=== PATIENT | male | born 1960 | race Caucasian/White ===

== ENCOUNTER → 2017-10-25 | Outpatient (CLI) | payer OTHER ==
[~2017-10-25] MED LIST: CONRAY-43 43% 50ML VIAL (Q9960) As Ordered; LIDOCAINE 1% MDV 20ML VIAL As Ordered; TRIAMCINOLONE ACETONIDE SUSP 40 MG/ML VIAL (J3301) As Ordered
== END ==
LOC: M RADPRO 11:13
DX: M75.21 Bicipital tendinitis, right shoulder (principal)
CPT/HCPCS: 20610

== ENCOUNTER 2017-10-28 11:39 | Emergency (ER) | payer OTHER ==
[2017-10-28 12:11] LABS: BASO % 0.4 % (0.0-1.0); EOS % 0.1 % (0.0-3.0); HEMATOCRIT 50.9 % (42.0-52.0); IMMATURE GRANULOCYTE % 1.5 % (0-3.0); LYMPH # 2.2 10^3/uL (1.5-4.5); LYMPH % 19.5 % (24.0-44.0); MEAN CORPUSCULAR HGB CONC 33.4 g/dl (32.0-36.5); MEAN CORPUSCULAR VOLUME 86.7 fl (80.0-96.0); MONO # 0.9 10^3/uL (0.0-0.8); MONO % 7.8 % (0.0-5.0); NEUTROPHILS % 70.7 % (36.0-66.0); PLATELET COUNT, AUTOMATED 292 10^3/uL (150-450); RED BLOOD COUNT 5.87 10^6/uL (4.30-6.10); RED CELL DISTRIBUTION WIDTH 13.7 % (11.5-14.5); WHITE BLOOD COUNT 11.3 10^3/uL (4.0-10.0)
[2017-10-28 12:25] LABS: INR 0.98; PROTHROMBIN TIME 13.1 SECONDS (12.4-14.5)
[2017-10-28 12:26] LABS: PARTIAL THROMBOPLASTIN TIME 32.7 SECONDS (26.8-37.9)
[2017-10-28 12:39] LABS: ALBUMIN 3.1 GM/DL (3.2-5.2); ALBUMIN/GLOBULIN RATIO 0.82 (1.00-1.93); ALKALINE PHOSPHATASE 58 U/L (45-117); ALT/SGPT 54 U/L (12-78); ANION GAP 6 MEQ/L (8-16); AST/SGOT 18 U/L (7-37); BILIRUBIN,DIRECT < 0.1 MG/DL (0.0-0.2); BILIRUBIN,TOTAL 0.3 MG/DL (0.2-1.0); BLOOD UREA NITROGEN 20 MG/DL (7-18); CARBON DIOXIDE LEVEL 30 MEQ/L (21-32); CHLORIDE LEVEL 106 MEQ/L (98-107); CPK CREATINE PHOSPHOKINASE 98 U/L (39-308); CREATININE FOR GFR 1.25 MG/DL (0.70-1.30); FREE T4 0.92 NG/DL (0.76-1.46); GLOMERULAR FILTRATION RATE > 60.0 (>56); GLUCOSE, FASTING 132 MG/DL (70-100); LIPASE 401 U/L (73-393); POTASSIUM SERUM 4.3 MEQ/L (3.5-5.1); SODIUM LEVEL 142 MEQ/L (136-145); TOTAL PROTEIN 6.9 GM/DL (6.4-8.2); TROPONIN I < 0.02 NG/ML (< 0.10)
[2017-10-28 12:45] LABS: CK-MB VALUE MASS 1.2 NG/ML (<3.6); MB/CK RELATIVE INDEX 1.22 (< OR =4)
[2017-10-28] MEDS: dexameTHASONE 20 MG/5 ML VIAL (J1100) IV (14:05)
[2017-10-28] MEDS: FAMOTIDINE INJ 20MG/2ML VIAL (S0028) IVP (14:08)
== END 2017-10-28 15:51 | disposition home or self-care (01) ==
LOC: M ED 11:39
DX: R07.9 Chest pain, unspecified (principal); T50.8X5A Adverse effect of diagnostic agents, initial encounter; Z79.899 Other long term (current) drug therapy; Z87.891 Personal history of nicotine dependence
CPT/HCPCS: J1100

== ENCOUNTER → 2017-12-17 | Outpatient (CLI) | payer OTHER ==
[2017-12-17 18:06] LABS: ESTRADIOL 120.1 PG/ML (<39.8)
[2017-12-17 18:13] LABS: FREE T3 2.7 PG/ML (2.2-4.0); THYROXINE (T4) 10.4 UG/DL (4.5-12.0)
== END ==
LOC: M WUC 15:16
DX: R53.83 Other fatigue (principal); E29.1 Testicular hypofunction
CPT/HCPCS: 84146

== ENCOUNTER → 2018-04-25 | Outpatient (CLI) | payer OTHER ==
[2018-04-25 18:05] LABS: ESTRADIOL 24.5 PG/ML (<39.8)
[2018-04-29 00:07] LABS: TESTOSTERONE FREE (DIRECT) > 50.0 pg/mL (7.2-24.0); TESTOSTERONE TOTAL FOR T&D > 1500.0 ng/dL (264-916)
== END ==
LOC: M WUC 11:21
DX: E29.1 Testicular hypofunction (principal)
CPT/HCPCS: 84403

== ENCOUNTER → 2018-06-04 | Outpatient (CLI) | payer OTHER ==
[~2018-06-04] MED LIST changes: +BENA25TA10 PO; +CIAL5TAB; +CLARITIN; -CONRAY-43 43% 50ML VIAL (Q9960) As Ordered; +HYDR-3719; -LIDOCAINE 1% MDV 20ML VIAL As Ordered; +PRED20TA PO; -TRIAMCINOLONE ACETONIDE SUSP 40 MG/ML VIAL (J3301) As Ordered
--- NOTE | 2018-06-10 11:31 | SLEEPHOME ---
DATE OF STUDY: 06/04/2018 ORDERING PROVIDER: JD Adams Diagnostic home sleep testing was performed due to concern for the obstructive sleep apnea syndrome in this patient with a history of excessive somnolence, snoring, and nonrestorative sleep who has comorbidity of hypertension. For testing, a nocturnal T3 respiratory monitoring device was used. Continuous record was made of pulse, oxygen saturation, airflow, chest and abdominal strain, and body position. 10 hours and 59 minutes of data were reviewed. There were 7 hours and 47 minutes identified as time in bed. During the interval marked time in bed, there were 41 respiratory events identified of 10 seconds in duration or greater. The events were primarily obstructive and not exclusive to body posture. The patient's baseline pulse rate was 66 beats per minute. Pulse rate ranged 56-83. Baseline saturation was 94%. Saturations fell to 88%. Testing was performed primarily in a supine position. IMPRESSION: Abnormal home sleep testing with repetitive respiratory events and oxygen desaturations to 88% with a respiratory event index of 5.3 is consistent with the obstructive sleep apnea syndrome. RECOMMENDATION: The patient should be encouraged to undergo formal sleep evaluation and in-laboratory titration.
== END ==
LOC: M SLEEP HO 10:41
PROVIDERS: ATTEND Nurse Practitioner Family
DX: R40.0 Somnolence (principal)

== ENCOUNTER → 2018-07-15 | Outpatient (CLI) | payer OTHER ==
[2018-07-15 13:16] LABS: ALBUMIN 3.9 GM/DL (3.2-5.2); ALT/SGPT 54 U/L (12-78); BILIRUBIN,TOTAL 0.6 MG/DL (0.2-1.0); BLOOD UREA NITROGEN 20 MG/DL (7-18); CALCIUM LEVEL 8.7 MG/DL (8.5-10.1); CARBON DIOXIDE LEVEL 30 MEQ/L (21-32); CHLORIDE LEVEL 102 MEQ/L (98-107); CHOLESTEROL LEVEL 251 MG/DL (<200); CHOLESTEROL RISK RATIO 6.435 (<5); CREATININE FOR GFR 1.19 MG/DL (0.70-1.30); GLOMERULAR FILTRATION RATE > 60.0 (>56); GLUCOSE, FASTING 82 MG/DL (70-100); HDL CHOLESTEROL 39 MG/DL (>40); LDL CHOLESTEROL 180 MG/DL (<100); NON-HDL-C 212 MG/DL; POTASSIUM SERUM 4.7 MEQ/L (3.5-5.1); SODIUM LEVEL 139 MEQ/L (136-145); TOTAL PROTEIN 6.9 GM/DL (6.4-8.2); TRIGLYCERIDES LEVEL 158 MG/DL (<150)
== END ==
LOC: M WUC 08:55
PROVIDERS: ATTEND Internal Medicine
DX: Z00.00 Encounter for general adult medical examination without abnormal findings (principal); I10 Essential (primary) hypertension

== ENCOUNTER → 2020-11-04 | Outpatient (REF) | payer OTHER ==
[2020-11-07 13:08] LABS: TESTOSTERONE FREE (DIRECT) > 50.0 pg/mL (7.2-24.0); TESTOSTERONE TOTAL FOR T&D > 1500.0 ng/dL (264-916)
== END ==
LOC: M LAB REF 19:44
PROVIDERS: ATTEND Anesthesiology Pain Medicine
DX: E23.0 Hypopituitarism (principal)

== ENCOUNTER → 2021-04-17 | Outpatient (CLI) | payer OTHER ==
[2021-04-17 17:26] LABS: PROSTATIC SPECIFIC AG MONITOR 3.07 NG/ML (< 4.00)
[2021-04-17 17:34] LABS: TOTAL 25(OH) VITAMIN D 25.8 NG/ML (30.0-100.0)
== END ==
LOC: M WUC 12:09
PROVIDERS: ATTEND Anesthesiology Pain Medicine
DX: E29.1 Testicular hypofunction (principal)

== ENCOUNTER → 2021-09-04 | Outpatient (CLI) | payer OTHER ==
[2021-09-04 10:35] LABS: HEMATOCRIT 57.4 % (42.0-52.0); HEMOGLOBIN 18.9 g/dl (13.5-17.5); MEAN CORPUSCULAR HGB CONC 32.9 g/dl (32.0-36.5); PLATELET COUNT, AUTOMATED 235 10^3/uL (150-450); RED BLOOD COUNT 6.31 10^6/uL (4.30-6.10); WHITE BLOOD COUNT 6.5 10^3/uL (4.0-10.0)
[2021-09-04 11:11] LABS: CALCIUM LEVEL 9.2 MG/DL (8.8-10.2); CREATININE FOR GFR 1.34 MG/DL (0.70-1.30); GLOMERULAR FILTRATION RATE 57.9 (>49); POTASSIUM SERUM 4.4 MEQ/L (3.5-5.1)
[2021-09-04 11:12] LABS: ALBUMIN 3.5 GM/DL (3.2-5.2); BILIRUBIN,TOTAL 0.6 MG/DL (0.2-1.0); CHOLESTEROL RISK RATIO 6.485 (<5); MAGNESIUM LEVEL 2.2 MG/DL (1.8-2.4); TOTAL PROTEIN 6.6 GM/DL (6.4-8.2)
== END ==
LOC: M PLALAB 08:55
PROVIDERS: ATTEND Internal Medicine
DX: I10 Essential (primary) hypertension (principal); R29.818 Other symptoms and signs involving the nervous system; E78.00 Pure hypercholesterolemia, unspecified

== ENCOUNTER → 2021-12-06 | Outpatient (CLI) | payer OTHER ==
[2021-12-06 17:20] LABS: BASO # 0.1 10^3/uL (0.0-0.2); BASO % 0.6 % (0.0-1.0); EOS # 0.1 10^3/uL (0.0-0.5); HEMATOCRIT 58.5 % (42.0-52.0); HEMOGLOBIN 18.9 g/dl (13.5-17.5); LYMPH # 1.4 10^3/uL (1.5-5.0); LYMPH % 15.4 % (24.0-44.0); MEAN CORPUSCULAR HEMOGLOBIN 28.9 pg (27.0-33.0); MEAN CORPUSCULAR HGB CONC 32.3 g/dl (32.0-36.5); MEAN CORPUSCULAR VOLUME 89.6 fl (80.0-96.0); MONO # 0.8 10^3/uL (0.0-0.8); NEUTROPHILS # 6.6 10^3/uL (1.5-8.5); NEUTROPHILS % 73.6 % (36.0-66.0); PLATELET COUNT, AUTOMATED 282 10^3/uL (150-450); RED BLOOD COUNT 6.53 10^6/uL (4.30-6.10); WHITE BLOOD COUNT 8.9 10^3/uL (4.0-10.0)
[2021-12-06 18:39] LABS: ALBUMIN 3.7 GM/DL (3.2-5.2); BILIRUBIN,TOTAL 0.4 MG/DL (0.2-1.0); CALCIUM LEVEL 9.2 MG/DL (8.8-10.2); CREATININE FOR GFR 1.34 MG/DL (0.70-1.30); GLOMERULAR FILTRATION RATE 57.9 (>49); POTASSIUM SERUM 4.8 MEQ/L (3.5-5.1); TOTAL PROTEIN 6.9 GM/DL (6.4-8.2)
== END ==
LOC: M PLALAB 15:08
PROVIDERS: ATTEND Internal Medicine Hematology
DX: R10.32 Left lower quadrant pain (principal)

== ENCOUNTER → 2021-12-14 | Outpatient (CLI) | payer OTHER | LOC: M RAD 16:13 | PROVIDERS: ATTEND Internal Medicine Hematology | DX: R10.32 Left lower quadrant pain (principal) ==

== ENCOUNTER → 2021-12-21 | Outpatient (CLI) | payer OTHER ==
[~2021-12-21] MED LIST changes: +ISOVUE-370 76% 100ML VIAL As Ordered ONE
== END ==
LOC: M RAD 08:36
PROVIDERS: ATTEND Internal Medicine Hematology
DX: N28.89 Other specified disorders of kidney and ureter (principal); K76.89 Other specified diseases of liver

== ENCOUNTER → 2021-12-22 | Outpatient (CLI) | payer OTHER ==
[~2021-12-22] MED LIST changes: -ISOVUE-370 76% 100ML VIAL As Ordered ONE
[2021-12-22 11:22] LABS: BASO # 0.1 10^3/uL (0.0-0.2); BASO % 0.8 % (0.0-1.0); EOS # 0.1 10^3/uL (0.0-0.5); EOS % 1.8 % (0.0-3.0); HEMATOCRIT 59.2 % (42.0-52.0); HEMOGLOBIN 19.3 g/dl (13.5-17.5); LYMPH # 1.7 10^3/uL (1.5-5.0); LYMPH % 27.1 % (24.0-44.0); MEAN CORPUSCULAR HEMOGLOBIN 29.3 pg (27.0-33.0); MEAN CORPUSCULAR HGB CONC 32.6 g/dl (32.0-36.5); MEAN CORPUSCULAR VOLUME 89.8 fl (80.0-96.0); MONO # 0.4 10^3/uL (0.0-0.8); MONO % 7.2 % (2.0-8.0); NEUTROPHILS # 3.8 10^3/uL (1.5-8.5); NEUTROPHILS % 62.8 % (36.0-66.0); PLATELET COUNT, AUTOMATED 251 10^3/uL (150-450); RED BLOOD COUNT 6.59 10^6/uL (4.30-6.10); WHITE BLOOD COUNT 6.1 10^3/uL (4.0-10.0)
[2021-12-22 12:05] LABS: ALBUMIN 3.6 GM/DL (3.2-5.2); BILIRUBIN,TOTAL 0.6 MG/DL (0.2-1.0); CALCIUM LEVEL 9.5 MG/DL (8.8-10.2); CREATININE FOR GFR 1.42 MG/DL (0.70-1.30); GLOMERULAR FILTRATION RATE 54.1 (>49); POTASSIUM SERUM 4.7 MEQ/L (3.5-5.1)
== END ==
LOC: M LAB 10:27
PROVIDERS: ATTEND Internal Medicine Hematology
DX: R10.32 Left lower quadrant pain (principal)

== ENCOUNTER → 2021-12-22 | Outpatient (CLI) | payer OTHER | LOC: M RAD 10:21 | PROVIDERS: ATTEND Physician Assistant | DX: N28.89 Other specified disorders of kidney and ureter (principal) ==

== ENCOUNTER → 2022-02-06 | Outpatient (CLI) | payer OTHER ==
[2022-02-06 20:55] LABS: ALBUMIN 3.6 GM/DL (3.2-5.2); CALCIUM LEVEL 9.5 MG/DL (8.8-10.2); CREATININE FOR GFR 1.48 MG/DL (0.70-1.30); GLOMERULAR FILTRATION RATE 51.6 (>49); PHOSPHORUS LEVEL 3.1 MG/DL (2.5-4.9); POTASSIUM SERUM 4.4 MEQ/L (3.5-5.1); THYROID STIMULATING HORMONE 2.65 uIU/ML (0.358-3.740); THYROXINE (T4) 11.2 UG/DL (4.5-12.0)
[2022-02-06 21:16] LABS: FREE T3 3.2 PG/ML (2.2-4.0)
[2022-02-08 21:07] LABS: TESTOSTERONE FREE (DIRECT) 37.1 pg/mL (6.6-18.1); TESTOSTERONE TOTAL FOR T&D > 1500.0 ng/dL (264-916)
== END ==
LOC: M WUC 14:59
PROVIDERS: ATTEND Anesthesiology Pain Medicine
DX: R53.83 Other fatigue (principal); N18.9 Chronic kidney disease, unspecified

== ENCOUNTER → 2022-06-21 | Outpatient (CLI) | payer OTHER | LOC: M WHC 10:34 | PROVIDERS: ATTEND Internal Medicine Cardiovascular Disease | DX: I65.21 Occlusion and stenosis of right carotid artery (principal) ==

== ENCOUNTER → 2022-10-04 | Outpatient (REF) | payer OTHER ==
[2022-10-04 17:45] LABS: BLOOD UREA NITROGEN 20 MG/DL (9-23); CREATININE FOR GFR 1.24 MG/DL (0.70-1.30); GLOMERULAR FILTRATION RATE > 60.0 (>49)
== END ==
LOC: M LAB REF 16:15
PROVIDERS: ATTEND Surgery Vascular Surgery
DX: Z01.812 Encounter for preprocedural laboratory examination (principal); I65.21 Occlusion and stenosis of right carotid artery

== ENCOUNTER → 2022-10-11 | Outpatient (CLI) | payer OTHER ==
[~2022-10-11] MED LIST changes: +ISOVUE-370 76% 100ML VIAL As Ordered ONE
== END ==
LOC: M RAD 07:36
PROVIDERS: ATTEND Surgery Vascular Surgery
DX: I65.21 Occlusion and stenosis of right carotid artery (principal)
CPT/HCPCS: 70498; Q9967

== ENCOUNTER → 2025-01-06 | Outpatient (REF) | payer OTHER ==
[~2025-01-06] MED LIST changes: -ISOVUE-370 76% 100ML VIAL As Ordered ONE
== END ==
LOC: M SFHCPLAZ 13:48
PROVIDERS: ATTEND Family Medicine
DX: Z00.00 Encounter for general adult medical examination without abnormal findings (principal); R79.89 Other specified abnormal findings of blood chemistry; E78.5 Hyperlipidemia, unspecified; I10 Essential (primary) hypertension; M54.16 Radiculopathy, lumbar region; G89.29 Other chronic pain; Z79.891 Long term (current) use of opiate analgesic

== ENCOUNTER → 2025-01-07 | Outpatient (CLI) | payer OTHER ==
[2025-01-07 17:41] LABS: PLATELET COUNT, AUTOMATED 257 10^3/uL (150-450)
[2025-01-07 18:25] LABS: PSA SCREENING 2.5 NG/ML (< 4.00)
[2025-01-07 18:29] LABS: ALT/SGPT 28.0 U/L (7.0-40); AST/SGOT 21.0 U/L (<34); CALCIUM LEVEL 10.1 MG/DL (8.3-10.6); CARBON DIOXIDE LEVEL 33.0 MMOL/L (20-31); CHLORIDE LEVEL 102.0 MMOL/L (98-107); CHOLESTEROL LEVEL 304.0 MG/DL (<200); CHOLESTEROL RISK RATIO 8.37 (<5); CREATININE FOR GFR 1.45 MG/DL (0.70-1.30); GLOMERULAR FILTRATION RATE 54.2 (>49); LDL CHOLESTEROL 243.1 MG/DL (<100); NON-HDL-C 267.7 MG/DL; POTASSIUM SERUM 4.4 MMOL/L (3.5-5.1); SODIUM LEVEL 142.0 MMOL/L (136-145); TRIGLYCERIDES LEVEL 123.0 MG/DL (<150)
== END ==
LOC: M WUC 13:37
PROVIDERS: ATTEND Family Medicine
DX: Z00.00 Encounter for general adult medical examination without abnormal findings (principal)

== ENCOUNTER → 2025-02-03 | Outpatient (REF) | payer OTHER | LOC: M SFHCPLAZ 16:36 | PROVIDERS: ATTEND Family Medicine | DX: Z53.9 Procedure and treatment not carried out, unspecified reason (principal); R79.89 Other specified abnormal findings of blood chemistry ==

== ENCOUNTER → 2025-03-19 | Outpatient (CLI) | payer OTHER | LOC: M PLAIMG 15:05 | PROVIDERS: ATTEND Nurse Practitioner Family | DX: M51.16 Intervertebral disc disorders with radiculopathy, lumbar region (principal) ==

== ENCOUNTER → 2025-03-22 | Outpatient (CLI) | payer OTHER | LOC: M WUC 11:02 | PROVIDERS: ATTEND Family Medicine | DX: R79.89 Other specified abnormal findings of blood chemistry (principal) ==

== ENCOUNTER → 2025-05-11 | Outpatient (REF) | payer OTHER | LOC: M SFHCPLAZ 13:08 | PROVIDERS: ATTEND Family Medicine | DX: Z53.9 Procedure and treatment not carried out, unspecified reason (principal); R79.89 Other specified abnormal findings of blood chemistry ==